=== PATIENT | female | born 1945 | race Hispanic/Latino ===

== ENCOUNTER 2019-10-23 10:25 | Emergency (ER) | payer SELFPAY ==
--- NOTE | 2019-10-23 10:45 | Consultation ---
History of Present Illness - Reason for Consult Consult date: 10/23/19 Assessment and Plan [facility] Consult [facility] Date of Service: 10/23/2019 10:16:31 Impression: Small Vessel Infarct Comments/Sign-Out: The patient needs to be admitted for further testing with brain MRI, carotids and echo. Antiplatelet and statin therapy if no contraindications. Mechanism of Stroke: Possible Thromboembolic Metrics: Last Known Well: Unknown [facility] Notification Time: 10/23/2019 10:16:02 Arrival Time: 10/23/2019 10:24:00 Stamp Time: 10/23/2019 10:16:31 Time First Login Attempt: 10/23/2019 10:19:08 Video Start Time: 10/23/2019 10:19:08 Symptoms: slurred speech , dysphagia, cannot walk- since yesterday. NIHSS Start Assessment Time: 10/23/2019 10:41:31 Patient is not a candidate for Alteplase/Activase. Patient was not deemed candidate for Alteplase/Activase thrombolytics because of Last Well Known Above 4.5 Hours. Video End Time: 10/23/2019 10:48:33 CT head showed no acute hemorrhage or acute core infarct. Clinical Presentation is not Suggestive of Large Vessel Occlusive Disease ED Physician notified of diagnostic impression and management plan on 10/23/2019 10:48:35 Our recommendations are outlined below. Recommendations: Activate Stroke Protocol Admission/Order Set Stroke/Telemetry Floor Neuro Checks Bedside Swallow Eval DVT Prophylaxis IV Fluids, Normal Saline Head of Bed 30 Degrees Euglycemia and Avoid Hyperthermia (PRN Acetaminophen) Antiplatelet Therapy Recommended Routine Consultation with Inhouse Neurology for Follow up Care Sign Out: Discussed with Emergency Department Provider History of Present Illness: Patient is a 74 year old Female. Patient was brought by EMS for symptoms of slurred speech , dysphagia, cannot walk- since yesterday. 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 She was last known normal sometime yesterday with the exact time is unknown. She developed slurred speech, walking difficulty and difficulty with swallowing. Since the symptoms worsened overnight EMS, she was brought by EMS to the emergency room. Last seen normal was beyond 4.5 hours of presentation. There is no history of hemorrhagic complications or intracranial hemorrhage. There is no history of Recent Anticoagulants. There is no history of recent major surgery. There is no history of recent stroke. Past Medical History: Hypertension Diabetes Mellitus Atrial Fibrillation Stroke Anticoagulant use: No Antiplatelet use: No Examination: 1A: Level of Consciousness - Alert; keenly responsive + 0 1B: Ask Month and Age - Both Questions Right + 0 1C: Blink Eyes & Squeeze Hands - Performs Both Tasks + 0 2: Test Horizontal Extraocular Movements - Normal + 0 3: Test Visual Geiger - No Visual Loss + 0 4: Test Facial Palsy (Use Grimace if Obtunded) - Normal symmetry + 0 5A: Test Left Arm Motor Drift - No Movement + 4 5B: Test Right Arm Motor Drift - No Drift for 10 Seconds + 0 6A: Test Left Leg Motor Drift - No Drift for 5 Seconds + 0 6B: Test Right Leg Motor Drift - No Drift for 5 Seconds + 0 7: Test Limb Ataxia (FNF/Heel-Luna) - No Ataxia + 0 8: Test Sensation - Normal; No sensory loss + 0 9: Test Language/Aphasia - Normal; No aphasia + 0 10: Test Dysarthria - Normal + 0 11: Test Extinction/Inattention - No abnormality + 0 NIHSS Score: 4 Patient/Family was informed the Neurology Consult would happen via TeleHealth consult by way of interactive audio and video telecommunications and consented to receiving care in this manner. Due to the immediate potential for life-threatening deterioration due to underlying acute neurologic illness, I spent 35 minutes providing critical care. This time includes time for face to face visit via telemedicine, review of [facility] records, imaging studies and discussion of findings with providers, the patient and/or family. Dr Sunitha Allen [facility] Case [id number]
== END 2019-10-23 12:42 ==
LOC: ED 10:25
DX: I63.9 Cerebral infarction, unspecified (principal); Z53.21 Procedure and treatment not carried out due to patient leaving prior to being seen by health care provider